=== PATIENT | female | born 1990 | race Caucasian/White ===

== ENCOUNTER → 2020-01-13 09:00 | Outpatient (CLI) | payer OTHER, SELFPAY ==
[2020-01-13 10:51] LABS: Absolute Lymphocyte Count 1.39 X10^3/uL (0.83-4.51); Absolute Neutrophil Count 6.1 X10^3/uL (2.0-7.7); Basophil# 0.04 X10^3/uL; Basophil% 0.5 % (0-1); Eosinophil# 0.14 X10^3/uL; Eosinophils% 1.7 % (0-5); Hematocrit 40.4 % (37-47); Hemoglobin 13.1 g/dL (12.0-15.0); Lymphocyte # 1.39 X10^3/ul (4.0); Lymphocyte % 16.8 % (19-41); Mean Corp Hgb Conc 32.4 g/dL (32-36); Mean Corpuscular Hgb 31.6 pg (27.0-32.0); Mean Corpuscular Volume 97.3 fL (81-99); Mean Platelet Vol. 10.3 fl (6.2-12.0); Monocyte# 0.54 X10^3/uL; Monocyte% 6.5 % (0-10); NRBC Flagged by Analyzer 0 % (0-5); Neutrophil # 6.14 X10^3/uL (2.7-7.7); Platelet Count 243 K/mm3 (150-450); RBC Distribution Width CV 12.8 % (11.6-14.6); RBC Distribution Width SD 45.7 fl (35.1-43.9); Red Blood Count 4.15 M/mm3 (4.2-5.4); White Blood Count 8.3 K/mm3 (4.4-11.0)
[2020-01-13 10:59] LABS: Color, Urine Yellow (Yellow); Glucose, Dipstick Normal (Normal); Ketone-Dipstick Negative (Negative); Leukocyte Esterase-Dipstick 500 /ul (Negative); Nitrite-Dipstick Negative (Negative); Occult Blood-Urine 10 /ul (Negative); Protein-Dipstick 15 mg/dl (Negative); Urine Bilirubin Dipstick Negative (Negative); Urine Clarity Cloudy (Clear); Urine Urobilinogen Normal (Normal)
[2020-01-13 11:05] LABS: Glucose Challenge Gest 1H 50g 127 mg/dL (70-140)
[2020-01-13 11:40] LABS: HIV - WCH Non-Reactive (Nonreactive); Hepatitis B Surface Antigen Non-Reactive (Nonreactive); Hepatitis C Antibody Non-Reactive (Nonreactive); Rubella IgG Reactive (Nonreactive)
[2020-01-15 02:11] LABS: Prenatal RPR NONREACTIVE (NONREACTIVE)
== END ==
PROVIDERS: Visit Provider Obstetrics & Gynecology
DX: Z34.82 Encounter for supervision of other normal pregnancy, second trimester (principal)
CPT/HCPCS: 36415; 81002; 82950; 85025; 86703; 86762; 86803; 87086; 87088; 87340

== ENCOUNTER → 2020-02-03 09:42 | Outpatient (CLI) | payer OTHER, SELFPAY ==
[2020-02-03 11:10] LABS: Hematocrit 38.7 % (37-47); Hemoglobin 12.4 g/dL (12.0-15.0); Mean Corpuscular Volume 96.8 fL (81-99); Mean Platelet Vol. 10.7 fl (6.2-12.0); Platelet Count 227 K/mm3 (150-450); RBC Distribution Width CV 12.3 % (11.6-14.6); White Blood Count 7.8 K/mm3 (4.4-11.0)
== END ==
PROVIDERS: Visit Provider Obstetrics & Gynecology
DX: Z34.83 Encounter for supervision of other normal pregnancy, third trimester (principal)
CPT/HCPCS: 36415; 85027; 86850

== ENCOUNTER 2020-03-27 15:12 | Inpatient (IN) | payer SELFPAY ==
[2020-03-27] VITALS (14 sets, daily range): BP systolic 97–121; BP diastolic 57–74; PULSE 81–94; RESP 16; TEMP 36.6–37.5; O2SAT 99; BMI 25.9
[2020-03-27] MEDS: Lactated Ringers 1,000 ML 200 ML IV (15:25)
[2020-03-27 15:37] LABS: Absolute Lymphocyte Count 2.06 X10^3/uL (0.83-4.51); Absolute Neutrophil Count 11.8 X10^3/uL (2.0-7.7); Basophil# 0.05 X10^3/uL; Basophil% 0.3 % (0-1); Eosinophil# 0.04 X10^3/uL; Eosinophils% 0.3 % (0-5); Hematocrit 41.2 % (37-47); Hemoglobin 13.8 g/dL (12.0-15.0); Lymphocyte # 2.06 X10^3/ul (4.0); Lymphocyte % 13.7 % (19-41); Mean Corp Hgb Conc 33.5 g/dL (32-36); Mean Corpuscular Hgb 30.1 pg (27.0-32.0); Mean Corpuscular Volume 89.8 fL (81-99); Mean Platelet Vol. 10.3 fl (6.2-12.0); Monocyte# 1.05 X10^3/uL; NRBC Flagged by Analyzer 0 % (0-5); Neutrophil # 11.77 X10^3/uL (2.7-7.7); Neutrophil % 78.4 % (47-70); Platelet Count 236 K/mm3 (150-450); RBC Distribution Width CV 12.7 % (11.6-14.6); RBC Distribution Width SD 41.5 fl (35.1-43.9); Red Blood Count 4.59 M/mm3 (4.2-5.4)
[2020-03-27] MEDS: Oxytocin 30 units/NS 500 ml 30 UNITS/500 ML IV.SOLN 334 UNITS IV (16:16)
--- NOTE | 2020-03-27 16:47 | PCM.HPOB.BLA ---
History and Physical Date of Admission: 03/27/20 HPI: 29 yo at 36/1, RUMA 04/23/20 by LMP , admitted in labor. Denies LOF, VB. +FM +contractions. Denies LEON, vision changes, chest pain, dyspnea. This is complicated by: trial of labor after section. Patient's nephews have propionic acidemia controlled by diet, GBS unknown Obstetrical History G1: 38w breech c/s G2: current Past Medical History Denies Medications PNV Past Surgical History section Social History Tobacco use: denies Alcohol use: denies Illicit drug use: denies Labs Blood type: A negative Rubella: immune Hep B/C: neg/neg HIV: neg RPR: nonreactive GBS: unknown Allergies NKDA Review of Systems General: alert and oriented HEENT: _denies change of vision Heart/lungs: _denies CP, SOB GI: _denies nausea, vomiting, dysuria, diarrhea MSK: _denies calf pain, tenderness Physical Exam Vital Signs Temp Pulse BP Pulse Ox 03/27/20 16:47 86 114/58 L 03/27/20 15:21 81 99 03/27/20 15:06 97.8 F 82 121/72 H General: a&o x3, NAD HEENT: normocephalic, atraumatic Cardio: no JVD Resp: no increased work in breathing Abdomen: soft, gravid, nontender Extremities: _minimal-moderate edema CE: 5 cm on admission per pt FHT: 140/mod mark/+accel/no decel Trezevant: q2-3 min Labs Laboratory Last Values WBC 15.0 K/mm3 (4.4-11.0) H 03/27/20 15:15 RBC 4.59 M/mm3 (4.2-5.4) 03/27/20 15:15 Hgb 13.8 g/dL (12.0-15.0) 03/27/20 15:15 Hct 41.2 % (37-47) 03/27/20 15:15 MCV 89.8 fL (81-99) 03/27/20 15:15 MCH 30.1 pg (27.0-32.0) 03/27/20 15:15 MCHC 33.5 g/dL (32-36) 03/27/20 15:15 RDW Std Deviation 41.5 fl (35.1-43.9) 03/27/20 15:15 RDW Coeff of Mark 12.7 % (11.6-14.6) 03/27/20 15:15 Plt Count 236 K/mm3 (150-450) 03/27/20 15:15 MPV 10.3 fl (6.2-12.0) 03/27/20 15:15 Immature Gran % (Auto) 0.300 % (0.0-0.9) 03/27/20 15:15 Neut % (Auto) 78.4 % (47-70) H 03/27/20 15:15 Lymph % (Auto) 13.7 % (19-41) L 03/27/20 15:15 Glynn % (Auto) 7.0 % (0-10) 03/27/20 15:15 Eos % (Auto) 0.3 % (0-5) 03/27/20 15:15 Baso % (Auto) 0.3 % (0-1) 03/27/20 15:15 Absolute Neuts (auto) 11.8 X10^3/uL (2.0-7.7) H 03/27/20 15:15 Absolute Lymphs (auto) 2.06 X10^3/uL (0.83-4.51) 03/27/20 15:15 Nucleated RBC % 0 % (0-5) 03/27/20 15:15 Blood Type A NEGATIVE 03/27/20 15:15 Antibody Screen POSITIVE H 03/27/20 15:15 Assessment & Plan 29 yo at 36/1, RUMA 04/23/20 by LMP , admitted in labor. This is complicated by: trial of labor after section. Patient's nephews have propionic acidemia controlled by diet, GBS unknown. Admit to L&D - Routine labor orders - GBS unknown - precipitous delivery, unable to get GBS swab or PCN to be administered. - CEFM - TOLAC consent signed. Patient aware that success of TOLAC is about 60-80%. Greater change with spontaneous labor. Patient had c/s for breech, therefore was good candidate. Aware of <1% risk of uterine rupture. With that risk, risk of section, hysterectomy, hemorrhage, risk of demise and neurological complications. All questions answered, consents signed.
--- NOTE | 2020-03-27 17:00 | PCM.OPRPT ---
Vaginal Delivery Maternal Presentation: Active Labor Amniotic Membrane Rupture Type: Artificial Amniotic Fluid Description: Clear, Lightly stained meconium - particulate Final RUMA: 04/23/20 Final RUMA Source: LMP Gestational age: 36 Weeks and 1 Days Date of Procedure: 03/27/20 Pre-Operative Diagnosis: Su intrauterine , trial of labor after Post-Operative Diagnosis: Su intrauterine , vaginal after Surgery/ Procedure Performed: Spontaneous Vaginal Delivery Type of Anesthesia: None Description of Procedure: Spontaneous vaginal delivery of viable infant male. Precipitous. Nuchal cord around neck, delivered through, loose. Baby to mom. Cord clamped and cut. Spontaneous delivery of placenta. Lidocaine injected. Second degree perineal laceration repaired in usual fashion. Right labial laceration repaired with two figure of eight stitches. Hemostatic. EBL 450cc. Infant A gender: Male (1 minute): 8 (5 minute): 9
--- NOTE | 2020-03-27 17:04 | DCINST_ITS ---
Discharge Activity: Return to Normal Activity, May Shower May resume sexual activity in: 6 weeks Weight Bearing Status: Weight bearing as tolerated Call your doctor if you observe: Fever of 101 or Higher, Inability to urinate, Inability to have a bowel movement, Using more than one pad per hour, Shortness of breath, Dizziness Additional Instructions: If you experience any of the following, contact your healthcare provider. * Bleeding that soaks a pad every hour for 2 hours * Fever 100.4 or higher * Unrelieved incision or abdominal pain * Swelling, redness, discharge or bleeding from your incision or episiotomy site * Your incision begins to separate * Problems urinating (including inability to urinate or burning while urinating). * Visual changes * Severe headache * Flu-like symptoms * Pain or redness in one of both of your breasts * Pain, warmth, tenderness or swelling in your legs, especially the calf area * Frequent nausea and vomiting * Symptoms of depression or anxiety If you experience any of the following, call 911 or go to the nearest Emergency Room. * Chest pain * Problems breathing * Seizure activity * Partial or complete paralysis of a body part, slurred speech, weakness or dr ooping of the face, or a sudden inability to walk or hold your balance Allergies/Adverse Reactions: Allergies No Known Allergies Allergy (Verified 03/27/20 17:02) Please Follow Up With: Elier Zepeda MD When: 6 week Test Results: Test results from this visit will be discussed in further detail at your follow- up appointment, if applicable.
--- NOTE | 2020-03-27 17:04 | PCM.DCVAG ---
Discharge Activity: Return to Normal Activity, May Shower May resume sexual activity in: 6 weeks Weight Bearing Status: Weight bearing as tolerated Call your doctor if you observe: Fever of 101 or Higher, Inability to urinate, Inability to have a bowel movement, Using more than one pad per hour, Shortness of breath, Dizziness Additional Instructions: If you experience any of the following, contact your healthcare provider. Bleeding that soaks a pad every hour for 2 hours Fever 100.4 or higher Unrelieved incision or abdominal pain Swelling, redness, discharge or bleeding from your incision or episiotomy site Your incision begins to separate Problems urinating (including inability to urinate or burning while urinating). Visual changes Severe headache Flu-like symptoms Pain or redness in one of both of your breasts Pain, warmth, tenderness or swelling in your legs, especially the calf area Frequent nausea and vomiting Symptoms of depression or anxiety If you experience any of the following, call 911 or go to the nearest Emergency Room. Chest pain Problems breathing Seizure activity Partial or complete paralysis of a body part, slurred speech, weakness or drooping of the face, or a sudden inability to walk or hold your balance Allergies/Adverse Reactions: Allergies No Known Allergies Allergy (Verified 03/27/20 17:02) Please Follow Up With: Elier Zepeda MD When: 6 week Test Results: Test results from this visit will be discussed in further detail at your follow-up appointment, if applicable.
[2020-03-27] MEDS: Methylergonovine 0.2 MG/ML Ampul IM (17:26)
[2020-03-27] MEDS: miSOPROStol 200 MCG Tablet 1000 MCG RECTAL (18:00)
[2020-03-27] MEDS: 0.9% Saline Lock 10 ML Syringe IV (18:34)
[2020-03-27] MEDS: Morphine 4 MG/ML Syringe IM (18:34)
--- NOTE | 2020-03-27 21:38 | NURSING ---
2100 Assisted pt up to walk in room and transfer to room. Pt stated she was feeling dizzy and sat down on bed, called for assistance and to bring a wheelchair for transfer. Pt assisted to wheelchair, and transferred to room, tolerated well. In room, assisted pt to BR, pt stated she was feeling better. Pt was unable to void and started feeling dizzy and stated everything was black. Emergency cord pulled by this RN, ammonia salt used, available staff came to room and assisted with transfer of pt to wheelchair and then to bed. [facility] Blood pressure taken 98/54 HR 75BPM. Pt stated she was feeling better in bed. Educated pt on calling for assistance before getting out of bed.
[2020-03-28] VITALS (7 sets, daily range): BP systolic 87–104; BP diastolic 57–67; PULSE 102–114; RESP 16; TEMP 37.1–37.8; O2SAT 96–98
[2020-03-28] MEDS: Acetaminophen 500 MG Tablet 1000 MG PO ×2 (00:04→12:33)
[2020-03-28 05:29] LABS: Hematocrit 31.3 % (37-47); Hemoglobin 10.4 g/dL (12.0-15.0); Mean Corp Hgb Conc 33.2 g/dL (32-36); Mean Corpuscular Hgb 30.5 pg (27.0-32.0); Mean Corpuscular Volume 91.8 fL (81-99); Mean Platelet Vol. 10.2 fl (6.2-12.0); Platelet Count 192 K/mm3 (150-450); RBC Distribution Width SD 43.3 fl (35.1-43.9); Red Blood Count 3.41 M/mm3 (4.2-5.4); White Blood Count 17.6 K/mm3 (4.4-11.0)
--- NOTE | 2020-03-28 06:50 | PN.OBGYN_ITS ---
Subjective: PPD#1 Feeling sore. Pain controlled. Bleeding minimal. - Physical Exam Vitals/I&O's: Vital Signs Temp Pulse Resp BP Pulse Ox 99.0 F 108 H 16 99/58 L 99 03/28/20 03:33 03/28/20 03:37 03/28/20 03:33 03/28/20 03:33 03/27/20 15:21 Weight: 70.579 kg Body Mass Index (BMI) 25.9 Intake and Output for Last 24 Hours 03/26/20 03/27/20 03/28/20 23:59 23:59 23:59 Intake Total 670 / 670 Output Total 625 / 625 Balance 670 / 670 -625 / -625 General: Alert, Oriented x3, No apparent distress HEENT: Atraumatic, Normocephalic Neck: Supple Lungs: Clear to auscultation, Normal air movement Cardiovascular: Regular rate Abdomen: Soft - uterus 2 cm below umbilicus Extremities: No edema Neurological: Cranial nerves II-XII grossly intact Psych/Mental Status: Normal Affect Laboratory Results 03/27/20 15:15: WBC 15.0 H, RBC 4.59, Hgb 13.8, Hct 41.2, MCV 89.8, MCH 30.1, MCHC 33.5, RDW Std Deviation 41.5, RDW Coeff of Mark 12.7, Plt Count 236, MPV 10.3, Immature Gran % (Auto) 0.300, Neut % (Auto) 78.4 H, Lymph % (Auto) 13.7 L, [place] % (Auto) 7.0, Eos % (Auto) 0.3, Baso % (Auto) 0.3, Absolute Neuts (auto) 11.8 H, Absolute Lymphs (auto) 2.06, Nucleated RBC % 0 03/27/20 15:15: Blood Type A NEGATIVE, Antibody Screen POSITIVE H, Antibody Identification ANTI-D 03/28/20 05:15: WBC 17.6 H, RBC 3.41 L, Hgb 10.4 L, Hct 31.3 L, MCV 91.8, MCH 30.5, MCHC 33.2, RDW Std Deviation 43.3, RDW Coeff of Mark 13.0, Plt Count 192, MPV 10.2 Current Medications Acetaminophen (Acetaminophen 500 Mg Tablet) 1,000 mg PO Q8H PRN PRN PRN Reason: Pain Score 1-3 Last Admin: 03/28/20 00:04 Dose: 1,000 mg Documented by: Bisacodyl (Bisacodyl 10 Mg Suppository) 10 mg RECTAL UD PRN PRN Reason: If no BM Dibucaine (Dibucaine 30 Gm Tube) 1 applic TOPICAL TID PRN PRN; Protocol PRN Reason: Discomfort Hydrocortisone (Hydrocortisone 2.5% Crm) 1 applic TOPICAL TID PRN PRN; Protocol PRN Reason: Discomfort Methylergonovine Maleate (Methylergonovine 0.2 Mg/Ml Ampul) 0.2 mg IM X1 PRN PRN Reason: Excess bleeding/uterine atony Last Admin: 03/27/20 17:26 Dose: 0.2 mg Documented by: Ondansetron HCl (Ondansetron 4 Mg/2 Ml Vial) 4 mg IV Q4H PRN PRN PRN Reason: Nausea Senna/Docusate Sodium (Senna/Docusate Sodium 1 Tablet) 1 - 2 tablet PO DAILY PRN PRN PRN Reason: Constipation Simethicone (Simethicone 80 Mg Tablet) 80 mg PO PCHS PRN PRN Reason: Indigestion/Stomach pain Sodium Chloride (0.9% Saline Lock 10 Ml Syringe) 5 - 15 ml IV UD PRN PRN Reason: SALINE FLUSH Last Admin: 03/27/20 18:34 Dose: 10 ml Documented by: Medical Necessity - Tobacco Use Smoking Status: Never smoker Assessment/Plan PPD#1 s/p vaginal after section, . Bleeding has improved. Acute blood loss anemia secondary to delivery and laceration, PPH. Iron supplement at home. Home tomorrow.
[2020-03-29 01:53] VITALS: BP 86/45; PULSE 98; RESP 16; TEMP 37
[2020-03-29 08:00] VITALS: BP 93/59; PULSE 102; RESP 16; TEMP 36.6
--- NOTE | 2020-03-29 08:32 | PCM.PN.OB ---
Subjective: PPD#2 Feeling improved today. Lochia minimal. No dizziness. - Physical Exam Vitals/I&O's: Vital Signs Temp Pulse Resp BP Pulse Ox 98.6 F 98 16 86/45 L 98 03/29/20 01:53 03/29/20 01:53 03/29/20 01:53 03/29/20 01:53 03/28/20 16:13 Oxygen Delivery Method Room Air Weight: 70.579 kg Body Mass Index (BMI) 25.9 Intake and Output for Last 24 Hours 03/27/20 03/28/20 03/29/20 23:59 23:59 23:59 Intake Total 670 / 670 Output Total 625 / 625 Balance 670 / 670 -625 / -625 General: Alert, Oriented x3, No apparent distress HEENT: Atraumatic, Normocephalic Neck: Supple Lungs: Normal air movement Cardiovascular: Regular rate Abdomen: Soft Extremities: No edema Neurological: Cranial nerves II-XII grossly intact Psych/Mental Status: Normal Affect Current Medications Acetaminophen (Acetaminophen 500 Mg Tablet) 1,000 mg PO Q8H PRN PRN PRN Reason: Pain Score 1-3 Last Admin: 03/28/20 12:33 Dose: 1,000 mg Documented by: Bisacodyl (Bisacodyl 10 Mg Suppository) 10 mg RECTAL UD PRN PRN Reason: If no BM Dibucaine (Dibucaine 30 Gm Tube) 1 applic TOPICAL TID PRN PRN; Protocol PRN Reason: Discomfort Hydrocortisone (Hydrocortisone 2.5% Crm) 1 applic TOPICAL TID PRN PRN; Protocol PRN Reason: Discomfort Methylergonovine Maleate (Methylergonovine 0.2 Mg/Ml Ampul) 0.2 mg IM X1 PRN PRN Reason: Excess bleeding/uterine atony Last Admin: 03/27/20 17:26 Dose: 0.2 mg Documented by: Ondansetron HCl (Ondansetron 4 Mg/2 Ml Vial) 4 mg IV Q4H PRN PRN PRN Reason: Nausea Senna/Docusate Sodium (Senna/Docusate Sodium 1 Tablet) 1 - 2 tablet PO DAILY PRN PRN PRN Reason: Constipation Simethicone (Simethicone 80 Mg Tablet) 80 mg PO PCHS PRN PRN Reason: Indigestion/Stomach pain Sodium Chloride (0.9% Saline Lock 10 Ml Syringe) 5 - 15 ml IV UD PRN PRN Reason: SALINE FLUSH Last Admin: 03/27/20 18:34 Dose: 10 ml Documented by: Medical Necessity - Tobacco Use Smoking Status: Never smoker Assessment/Plan 29 yo PPD#2 s/p successful . PPH secondary to laceration. Feeling well, bleeding minimal. No dizziness. Vitals stable. Home today if baby is able to be discharged. F/u 6w
== END 2020-03-29 11:30 | disposition home or self-care (01) | DRG 807 ==
LOC: WPOUT 15:16 → WP 15:16
PROVIDERS: Admitting Provider Student in an Organized Health Care Education/Training Program; Visit Provider Student in an Organized Health Care Education/Training Program
DX: O34.219 Maternal care for unspecified type scar from previous cesarean delivery (principal); Z37.0 Single live birth; Z3A.36 36 weeks gestation of pregnancy; O77.0 Labor and delivery complicated by meconium in amniotic fluid; O69.81X0 Labor and delivery complicated by cord around neck, without compression, not applicable or unspecified; O70.1 Second degree perineal laceration during delivery
CPT/HCPCS: 59025; 59050; 85025; 85027; 86850; 86870; 86900; 86901; 99218; J7120; A4216; G0378